=== PATIENT | female | born 1995 | race Caucasian/White ===

== ENCOUNTER 2020-04-22 13:55 | Outpatient (CLI) | payer OTHER, SELFPAY ==
[2020-04-22 14:50] LABS: Alanine Aminotransferase 12 U/L (4-35); Alkaline Phosphatase 103 U/L (38-126); Aspartate Amino Transferase 18 U/L (14-36); Bilirubin,Total 0.1 mg/dL (0.2-1.3); Cholesterol 182 mg/dL (0-200); HDL Direct 66 mg/dL; Triglycerides 83 mg/dL (<150)
[2020-04-22 15:02] LABS: LDL Cholesterol Direct 96 mg/dL
== END 2020-04-22 13:56 | disposition home or self-care (01) ==
PROVIDERS: PCP Physician Assistant; Visit Provider Physician Assistant
DX: E78.5 Hyperlipidemia, unspecified (principal)
CPT/HCPCS: 36415; 80061; 80076